=== PATIENT | male | born 1980 | race African-American/Black ===

== ENCOUNTER 2021-12-18 03:16 | Emergency (ER) | payer OTHER, SELFPAY ==
[2021-12-18 04:27] LABS: #Eosinphils 0.3 10x3/uL (0.0-0.5); #Monocytes 0.9 10x3/uL (0.0-1.1); #Neutrophils 6.9 10x3/uL (1.5-8.4); %Basophils 0.2 % (0.0-2.0); %Eosinophils 2.5 % (0.0-6.0); %Lymphocytes 21.7 % (18.0-47.0); %Neutrophils 66.3 % (40.0-75.0); Hemoglobin 11.1 g/dL (13.5-17.5); Mean Corpuscular HGB CONC 31.5 g/dL (32.0-36.0); Mean Corpuscular Hemoglobin 25.4 pg (27.0-33.0); Mean Corpuscular Volume 80.5 fl (81.2-95.1); Mean Platelet Volume 8.7 fl (7.4-10.4); Platelet Count 390 10x3/uL (150-450); RBC Distribution Width 16.6 % (11.5-14.5); Red Blood Cell (RBC) Count 4.37 10x6/uL (4.32-5.72); White Blood Cell (WBC) Count 10.4 10x3/uL (3.5-10.5)
[2021-12-18 04:39] LABS: ALT (SGPT) 18 U/L (8-55); AST (SGOT) 21 U/L (5-34); Albumin 3.6 g/dL (3.5-5.0); Alkaline Phosphatase 98 U/L (40-110); Anion Gap 21 mmol/L (10-20); BUN (Urea Nitrogen) 14 mg/dL (8.9-20.6); Bilirubin, Total 0.4 mg/dL (0.2-1.2); Calc. Creatinine Clearance 0 mL/min (70-130); Calcium 8.7 mg/dL (7.8-10.44); Carbon Dioxide 20 mmol/L (22-29); Chloride 102 mmol/L (98-107); Glucose 104 mg/dL (70-105); Potassium 4.3 mmol/L (3.5-5.1); Protein, Total 7.6 g/dL (6.0-8.3); Sodium 139 mmol/L (136-145)
== END 2021-12-18 05:41 | disposition home or self-care (01) ==
LOC: CSHERS 03:16
DX: L89.329 Pressure ulcer of left buttock, unspecified stage (principal); G82.20 Paraplegia, unspecified
CPT/HCPCS: 36415; 80053; 83605; 85025; 87040; 87077; 87149; 99283

== ENCOUNTER 2022-02-20 02:06 | Inpatient (IN) | payer MEDICAID, SELFPAY ==
[2022-02-20] MEDS ORDERED: Acetaminophen 325 MG TAB ONE (02:38)
[2022-02-20] MEDS ORDERED: Cefepime 2 GM VIAL ONE (02:38)
[2022-02-20] MEDS ORDERED: Clindamycin/D5W 900 MG in Premix Bag 1 BAG IVPB SCH (02:45)
[2022-02-20 03:13] LABS: Hemoglobin 6.6 g/dL (13.5-17.5); Mean Corpuscular HGB CONC 30.3 g/dL (32.0-36.0); Mean Corpuscular Volume 79.3 fl (81.2-95.1); Mean Platelet Volume 9.3 fl (7.4-10.4); Platelet Count 673 10x3/uL (150-450); RBC Distribution Width 21.5 % (11.5-14.5); Red Blood Cell (RBC) Count 2.75 10x6/uL (4.32-5.72); White Blood Cell (WBC) Count 18.1 10x3/uL (3.5-10.5)
[2022-02-20 03:28] LABS: ALT (SGPT) 19 U/L (8-55); AST (SGOT) 32 U/L (5-34); Albumin 2.5 g/dL (3.5-5.0); Alkaline Phosphatase 94 U/L (40-110); Anion Gap 19 mmol/L (10-20); BUN (Urea Nitrogen) 40 mg/dL (8.9-20.6); Bilirubin, Total 1.4 mg/dL (0.2-1.2); Calc. Creatinine Clearance 0 mL/min (70-130); Calcium 8.7 mg/dL (7.8-10.44); Carbon Dioxide 21 mmol/L (22-29); Chloride 97 mmol/L (98-107); Estimated GFR 80; Globulin 6.3 g/dL (2.4-3.5); Glucose 168 mg/dL (70-105); Potassium 4.8 mmol/L (3.5-5.1); Protein, Total 8.8 g/dL (6.0-8.3); Sodium 132 mmol/L (136-145)
[2022-02-20 03:33] LABS: INR-International Normal Ratio 1.2; PTT 27.9 sec (22.0-33.0); Prothrombin Time 13.4 sec (9.5-12.1)
[2022-02-20 03:37] LABS: MDiff Complete? YES
[2022-02-20 03:43] LABS: Band 22 % (5-11); Lymphocytes 14 % (21-51); Monocytes 4 % (0-10); Neutrophil 60 % (42-75); Target Cells SLIGHT = 2-5 cells (100X) (0-1/hpf)
[2022-02-20 03:44] LABS: Platelet Morphology Comment Appears Increased; Polychromasia SLIGHT = 2-3 cells (100X) (0-2/hpf)
[2022-02-20 05:11] LABS: SARS-CoV-2 NAA Rapid Test Not Detected (NotDetected)
[2022-02-20] MEDS ORDERED: HYDROcodone/Acetaminophen 5/325 mg Tablet PO PRN (05:25)
[2022-02-20] MEDS ORDERED: Senokot S 8.6-50 MG TAB PO PRN (05:25)
[2022-02-20] MEDS ORDERED: Ondansetron PF 4 MG/2 ML Vial IVP PRN (05:25)
[2022-02-20] MEDS ORDERED: Calcium Carbonate 500 MG ChewTAB PO PRN (05:25)
[2022-02-20] MEDS ORDERED: Guaifenesin DM 100-10/5 ML UDCUP PO PRN (05:25)
[2022-02-20 06:13] LABS: Lactic Acid 1.2 mmol/L (0.5-2.2)
[2022-02-20 07:10] LABS: Hemoglobin 7.4 g/dL (13.5-17.5); Mean Corpuscular HGB CONC 31.4 g/dL (32.0-36.0); Mean Corpuscular Hemoglobin 24.7 pg (27.0-33.0); Mean Corpuscular Volume 78.7 fl (81.2-95.1); Mean Platelet Volume 9.1 fl (7.4-10.4); Platelet Count 464 10x3/uL (150-450); RBC Distribution Width 20.3 % (11.5-14.5); White Blood Cell (WBC) Count 13.2 10x3/uL (3.5-10.5)
[2022-02-20 07:17] LABS: Lactic Acid 1.4 mmol/L (0.5-2.2)
[2022-02-20 07:23] LABS: MDiff Complete? YES
[2022-02-20 07:28] LABS: Band 21 % (5-11); Eosinophils 1 % (0-10); Lymphocytes 14 % (21-51); Monocytes 6 % (0-10); Myelocyte 1 % (0-0); Neutrophil 57 % (42-75)
[2022-02-20 07:29] LABS: Polychromasia SLIGHT = 2-3 cells (100X) (0-2/hpf); Target Cells SLIGHT = 2-5 cells (100X) (0-1/hpf)
[2022-02-20 07:30] LABS: Platelet Morphology Comment Appears Increased; Vacuoles SLIGHT
[2022-02-20] MEDS: Lactated Ringer's 1,000 ML IV SCH ×3 (07:30→22:17)
[2022-02-20] MEDS: Famotidine/PF 20 mg/2ml Vial SLOW IVP SCH ×2 (09:46→22:18)
[2022-02-20] MEDS: Piperacillin/Tazobactam 3.375 GM in Sodium Chloride 0.9% 100 ML IVPB SCH ×4 (09:46→22:18)
[2022-02-20] MEDS: Folic Acid 1 MG TAB PO SCH (09:50)
[2022-02-20] MEDS: Multivitamin W/ Minerals 1 TAB PO SCH (09:51)
[2022-02-20] MEDS: Nicotine 21 MG PATCH TD SCH (09:52)
[2022-02-20 11:08] LABS: Bilirubin Neg (Negative); Blood, Urine 250 (Negative); Clarity Clear (Clear); Glucose, Urine (Dipstick) Normal (Negative); Ketone, Urine Negative (Negative); Leukocyte 25 (Negative); Nitrite Negative (Negative); Protein, Urine (Dipstick) 30 mg/dl (Neg-Trace); Specific Gravity, Urine 1.015 (1.002-1.036)
[2022-02-20 11:27] LABS: RBC/HPF 21-50 HPF (0-3)
[2022-02-20 11:28] LABS: Bacteria/HPF Rare-Few HPF (None Seen); Epithelial Cast 0-3 LPF (None Seen); Red Blood Cell Cast 0-3 LPF (None Seen); Squamous Epithelial 0-3 HPF (0-3)
[2022-02-20] MEDS ORDERED: Meropenem 500 MG in Sodium Chloride 0.9% 100 ML IVPB SCH (12:00)
[2022-02-20 13:35] LABS: Hemoglobin 8.4 g/dL (13.5-17.5); Mean Corpuscular HGB CONC 32.7 g/dL (32.0-36.0); Mean Corpuscular Hemoglobin 26.1 pg (27.0-33.0); Mean Corpuscular Volume 79.8 fl (81.2-95.1); Mean Platelet Volume 9.7 fl (7.4-10.4); Platelet Count 555 10x3/uL (150-450); RBC Distribution Width 20.6 % (11.5-14.5); Red Blood Cell (RBC) Count 3.22 10x6/uL (4.32-5.72); White Blood Cell (WBC) Count 13.5 10x3/uL (3.5-10.5)
[2022-02-20] MEDS: Vancomycin HCl 1 GM in Sodium Chloride 0.9% 250 ML 250 ML IVPB SCH (14:06)
[2022-02-20] MEDS ORDERED: Iopamidol 300 61% 100 ML VIAL FS ONE (15:09)
[2022-02-20] MEDS ORDERED: Vancomycin 1 GM in Premix Bag 1 BAG IVPB SCH (18:00)
[2022-02-21] MEDS: Vancomycin HCl 1 GM in Sodium Chloride 0.9% 250 ML 250 ML IVPB SCH ×2 (02:50→15:29)
[2022-02-21 03:57] LABS: Hemoglobin 7.8 g/dL (13.5-17.5); Mean Corpuscular HGB CONC 32.1 g/dL (32.0-36.0); Mean Corpuscular Hemoglobin 25.6 pg (27.0-33.0); Mean Corpuscular Volume 79.7 fl (81.2-95.1); Mean Platelet Volume 9.2 fl (7.4-10.4); Platelet Count 394 10x3/uL (150-450); RBC Distribution Width 20.2 % (11.5-14.5); Red Blood Cell (RBC) Count 3.05 10x6/uL (4.32-5.72); White Blood Cell (WBC) Count 14.1 10x3/uL (3.5-10.5)
[2022-02-21 04:05] LABS: Anion Gap 12 mmol/L (10-20); BUN (Urea Nitrogen) 20 mg/dL (8.9-20.6); Calc. Creatinine Clearance 139 mL/min (70-130); Calcium 7.7 mg/dL (7.8-10.44); Carbon Dioxide 20 mmol/L (22-29); Chloride 106 mmol/L (98-107); Estimated GFR 118; Glucose 116 mg/dL (70-105); Potassium 4.1 mmol/L (3.5-5.1); Sodium 134 mmol/L (136-145)
[2022-02-21 04:18] LABS: MDiff Complete? YES
[2022-02-21 04:25] LABS: Band 18 % (5-11); Lymphocytes 20 % (21-51); Monocytes 5 % (0-10); Neutrophil 56 % (42-75); Nucleated RBC 1 % (0); Platelet Morphology Comment Appears Adequate; Polychromasia SLIGHT = 2-3 cells (100X) (0-2/hpf); Reactive Lymphocytes 1 % (0-10); Vacuoles SLIGHT
[2022-02-21] MEDS: Piperacillin/Tazobactam 3.375 GM in Sodium Chloride 0.9% 100 ML IVPB SCH ×3 (05:04→21:08)
[2022-02-21] MEDS: Lactated Ringer's 1,000 ML IV SCH ×2 (05:06→14:43)
[2022-02-21] MEDS: Folic Acid 1 MG TAB PO SCH (08:06)
[2022-02-21] MEDS: Nicotine 21 MG PATCH TD SCH (08:06)
[2022-02-21] MEDS: Multivitamin W/ Minerals 1 TAB PO SCH (08:06)
[2022-02-21] MEDS: Famotidine/PF 20 mg/2ml Vial SLOW IVP SCH ×2 (08:06→21:08)
[2022-02-21] MEDS ORDERED: SUGAMMADEX SODIUM 200 MG/2 ML VIAL ONE (09:26)
[2022-02-21] MEDS ORDERED: PROPOFOL 20 ML ONE (09:31)
[2022-02-21] MEDS ORDERED: Lidocaine 2% PF 5 ML VIAL ONE (09:32)
[2022-02-21] MEDS ORDERED: PHENYLEPHRINE-NS 100 MCG/ML 10 ML SYRINGE ONE (09:32)
[2022-02-21] MEDS ORDERED: Fentanyl 100 MCG/2 ML VIAL ONE (09:32)
[2022-02-21] MEDS ORDERED: Succinylcholine 200 MG/10 ml SYRINGE FS ONE (09:32)
[2022-02-21] MEDS ORDERED: Ondansetron PF 4 MG/2 ML Vial ONE (09:33)
[2022-02-21] MEDS ORDERED: Metoclopramide HCl 10 MG/2 ML VIAL ONE (09:33)
[2022-02-21] MEDS ORDERED: Rocuronium Bromide 10 MG/ML (10ML VIAL) ONE (09:33)
[2022-02-21 12:56] LABS: Hemoglobin A1c 5.4 % (4.0-6.0)
[2022-02-21 14:48] LABS: Vancomycin, Trough 17.7 ug/mL
[2022-02-22] MEDS: Vancomycin HCl 750 MG in Sodium Chloride 0.9% 250 ML 250 ML IVPB SCH ×2 (03:00→15:21)
[2022-02-22 04:10] LABS: Hemoglobin 6.5 g/dL (13.5-17.5); Mean Corpuscular HGB CONC 31.6 g/dL (32.0-36.0); Mean Corpuscular Hemoglobin 25.5 pg (27.0-33.0); Mean Corpuscular Volume 80.8 fl (81.2-95.1); Mean Platelet Volume 9.3 fl (7.4-10.4); Platelet Count 359 10x3/uL (150-450); RBC Distribution Width 20.3 % (11.5-14.5); Red Blood Cell (RBC) Count 2.55 10x6/uL (4.32-5.72); White Blood Cell (WBC) Count 19.9 10x3/uL (3.5-10.5)
[2022-02-22] MEDS: Lactated Ringer's 1,000 ML IV SCH ×3 (04:16→16:26)
[2022-02-22] MEDS: Piperacillin/Tazobactam 3.375 GM in Sodium Chloride 0.9% 100 ML IVPB SCH (04:16)
[2022-02-22 04:17] LABS: MDiff Complete? YES
[2022-02-22 04:26] LABS: ALT (SGPT) 12 U/L (8-55); AST (SGOT) 28 U/L (5-34); Albumin 1.7 g/dL (3.5-5.0); Alkaline Phosphatase 81 U/L (40-110); Anion Gap 13 mmol/L (10-20); BUN (Urea Nitrogen) 14 mg/dL (8.9-20.6); Bilirubin, Total 0.6 mg/dL (0.2-1.2); Calc. Creatinine Clearance 135 mL/min (70-130); Calcium 7.1 mg/dL (7.8-10.44); Carbon Dioxide 19 mmol/L (22-29); Chloride 105 mmol/L (98-107); Estimated GFR 117; Globulin 4.1 g/dL (2.4-3.5); Glucose 130 mg/dL (70-105); Potassium 3.6 mmol/L (3.5-5.1); Protein, Total 5.8 g/dL (6.0-8.3); Sodium 133 mmol/L (136-145)
[2022-02-22 04:42] LABS: Band 31 % (5-11); Eosinophils 1 % (0-10); Lymphocytes 14 % (21-51); Metamyelocyte 2 % (0-0); Monocytes 5 % (0-10); Neutrophil 47 % (42-75)
[2022-02-22 04:45] LABS: Anisocytosis SLIGHT = 6-15 cells (100X) (0-5/hpf); Hypochromia MODERATE=16-30 cells (100X) (0-5/hpf); Polychromasia SLIGHT = 2-3 cells (100X) (0-2/hpf)
[2022-02-22 04:47] LABS: Platelet Morphology Comment Appears Adequate
[2022-02-22 05:13] VITALS: BMI 20.7
[2022-02-22] MEDS: Nicotine 21 MG PATCH TD SCH (09:12)
[2022-02-22] MEDS: Famotidine/PF 20 mg/2ml Vial SLOW IVP SCH ×2 (09:12→20:07)
[2022-02-22] MEDS: Multivitamin W/ Minerals 1 TAB PO SCH (09:12)
[2022-02-22] MEDS: Folic Acid 1 MG TAB PO SCH (09:12)
[2022-02-22] MEDS: Enoxaparin Sodium 40 MG/0.4 ML SYRINGE SC SCH (09:15)
[2022-02-22] MEDS ORDERED: Meropenem 1 GM in Sodium Chloride 0.9% 100 ML IVPB SCH (09:30)
[2022-02-22] MEDS ORDERED: Chloraseptic Spray 180 ml Bottle PO PRN (17:37)
[2022-02-22] MEDS: Meropenem 1 GM in Sodium Chloride 0.9% 100 ML IVPB SCH (17:58)
[2022-02-22 18:14] LABS: Hemoglobin 7.3 g/dL (13.5-17.5)
[2022-02-22] MEDS: Cepastat Lozenges 1 LOZ PO PRN (19:46)
[2022-02-23] MEDS: Meropenem 1 GM in Sodium Chloride 0.9% 100 ML IVPB SCH ×3 (00:51→18:15)
[2022-02-23] MEDS: Lactated Ringer's 1,000 ML IV SCH ×4 (01:00→23:30)
[2022-02-23] MEDS: Vancomycin HCl 750 MG in Sodium Chloride 0.9% 250 ML 250 ML IVPB SCH ×2 (02:46→04:00)
[2022-02-23 05:24] LABS: Anion Gap 10 mmol/L (10-20); BUN (Urea Nitrogen) 10 mg/dL (8.9-20.6); Calc. Creatinine Clearance 152 mL/min (70-130); Calcium 7.1 mg/dL (7.8-10.44); Carbon Dioxide 25 mmol/L (22-29); Chloride 105 mmol/L (98-107); Estimated GFR 121; Glucose 126 mg/dL (70-105); Potassium 3.3 mmol/L (3.5-5.1); Sodium 137 mmol/L (136-145)
[2022-02-23 05:26] LABS: Hemoglobin 7.4 g/dL (13.5-17.5); Mean Corpuscular HGB CONC 31.8 g/dL (32.0-36.0); Mean Corpuscular Hemoglobin 26.4 pg (27.0-33.0); Mean Corpuscular Volume 83.2 fl (81.2-95.1); Mean Platelet Volume 9.3 fl (7.4-10.4); Platelet Count 357 10x3/uL (150-450); RBC Distribution Width 19.9 % (11.5-14.5); White Blood Cell (WBC) Count 15.9 10x3/uL (3.5-10.5)
[2022-02-23] MEDS: Famotidine/PF 20 mg/2ml Vial SLOW IVP SCH ×2 (09:14→23:30)
[2022-02-23] MEDS: Folic Acid 1 MG TAB PO SCH (09:14)
[2022-02-23] MEDS: Nicotine 21 MG PATCH TD SCH ×2 (09:14→09:29)
[2022-02-23] MEDS: Multivitamin W/ Minerals 1 TAB PO SCH (09:14)
[2022-02-23] MEDS: Enoxaparin Sodium 40 MG/0.4 ML SYRINGE SC SCH (09:14)
[2022-02-23] MEDS: Vancomycin HCl 1 GM in Sodium Chloride 0.9% 250 ML 250 ML IVPB SCH (16:00)
[2022-02-24] MEDS: Meropenem 1 GM in Sodium Chloride 0.9% 100 ML IVPB SCH ×3 (00:59→18:02)
[2022-02-24] MEDS: Cepastat Lozenges 1 LOZ PO PRN (00:59)
[2022-02-24] MEDS: Vancomycin HCl 1 GM in Sodium Chloride 0.9% 250 ML 250 ML IVPB SCH ×2 (05:00→15:23)
[2022-02-24] MEDS: Lactated Ringer's 1,000 ML IV SCH ×2 (09:09→15:23)
[2022-02-24] MEDS: Enoxaparin Sodium 40 MG/0.4 ML SYRINGE SC SCH (09:48)
[2022-02-24] MEDS: Famotidine/PF 20 mg/2ml Vial SLOW IVP SCH ×2 (09:48→20:32)
[2022-02-24] MEDS: Folic Acid 1 MG TAB PO SCH (09:49)
[2022-02-24] MEDS: Multivitamin W/ Minerals 1 TAB PO SCH (09:49)
[2022-02-24] MEDS: Nicotine 21 MG PATCH TD SCH (09:49)
[2022-02-24 18:11] LABS: Anion Gap 11 mmol/L (10-20); BUN (Urea Nitrogen) 9 mg/dL (8.9-20.6); Calc. Creatinine Clearance 175 mL/min (70-130); Calcium 7.7 mg/dL (7.8-10.44); Carbon Dioxide 26 mmol/L (22-29); Chloride 104 mmol/L (98-107); Estimated GFR 126; Glucose 98 mg/dL (70-105); Sodium 138 mmol/L (136-145)
[2022-02-24] MEDS ORDERED: Potassium Chloride 20 MEQ TAB PO SCH (18:30)
[2022-02-24] MEDS: Acetaminophen 325 MG TAB PO PRN (22:15)
[2022-02-25] MEDS: Lactated Ringer's 1,000 ML IV SCH ×4 (02:27→22:12)
[2022-02-25] MEDS: Meropenem 1 GM in Sodium Chloride 0.9% 100 ML IVPB SCH ×3 (02:32→17:44)
[2022-02-25 02:39] LABS: Vancomycin, Trough 12.5 ug/mL
[2022-02-25 03:03] LABS: Anion Gap 11 mmol/L (10-20); BUN (Urea Nitrogen) 8 mg/dL (8.9-20.6); Calc. Creatinine Clearance 188 mL/min (70-130); Calcium 7.1 mg/dL (7.8-10.44); Carbon Dioxide 25 mmol/L (22-29); Chloride 105 mmol/L (98-107); Estimated GFR 129; Glucose 117 mg/dL (70-105); Potassium 3.4 mmol/L (3.5-5.1); Sodium 138 mmol/L (136-145)
[2022-02-25] MEDS: Vancomycin HCl 1 GM in Sodium Chloride 0.9% 250 ML 250 ML IVPB SCH (04:04)
[2022-02-25] MEDS: VANCOMYCIN 1.25 GM/250 ML BAG 1.25 GM in Premix Bag 1 BAG IVPB SCH ×2 (04:52→16:13)
[2022-02-25] MEDS ORDERED: Potassium Chloride 20 MEQ TAB PO SCH (08:00)
[2022-02-25] MEDS: Multivitamin W/ Minerals 1 TAB PO SCH (09:08)
[2022-02-25] MEDS: Famotidine/PF 20 mg/2ml Vial SLOW IVP SCH ×2 (09:08→22:00)
[2022-02-25] MEDS: Nicotine 21 MG PATCH TD SCH (09:08)
[2022-02-25] MEDS: Folic Acid 1 MG TAB PO SCH (09:08)
[2022-02-25] MEDS: Enoxaparin Sodium 40 MG/0.4 ML SYRINGE SC SCH (09:09)
[2022-02-25] MEDS: Acetaminophen 325 MG TAB PO PRN (12:34)
[2022-02-26] MEDS: Meropenem 1 GM in Sodium Chloride 0.9% 100 ML IVPB SCH ×3 (01:36→17:10)
[2022-02-26] MEDS: VANCOMYCIN 1.25 GM/250 ML BAG 1.25 GM in Premix Bag 1 BAG IVPB SCH ×3 (04:23→19:42)
[2022-02-26 05:25] LABS: Anion Gap 11 mmol/L (10-20); BUN (Urea Nitrogen) 8 mg/dL (8.9-20.6); Calc. Creatinine Clearance 203 mL/min (70-130); Calcium 7.3 mg/dL (7.8-10.44); Carbon Dioxide 26 mmol/L (22-29); Chloride 104 mmol/L (98-107); Estimated GFR 132; Glucose 102 mg/dL (70-105); Potassium 3.5 mmol/L (3.5-5.1); Sodium 137 mmol/L (136-145)
[2022-02-26 05:31] LABS: Hemoglobin 6.8 g/dL (13.5-17.5); Mean Corpuscular HGB CONC 31.5 g/dL (32.0-36.0); Mean Corpuscular Hemoglobin 26.9 pg (27.0-33.0); Mean Corpuscular Volume 85.4 fl (81.2-95.1); Platelet Count 358 10x3/uL (150-450); RBC Distribution Width 21.4 % (11.5-14.5); Red Blood Cell (RBC) Count 2.53 10x6/uL (4.32-5.72); White Blood Cell (WBC) Count 13.6 10x3/uL (3.5-10.5)
[2022-02-26] MEDS: Acetaminophen 325 MG TAB PO PRN (07:00)
[2022-02-26] MEDS: Enoxaparin Sodium 40 MG/0.4 ML SYRINGE SC SCH (09:21)
[2022-02-26] MEDS: Folic Acid 1 MG TAB PO SCH (09:21)
[2022-02-26] MEDS: Nicotine 21 MG PATCH TD SCH (09:22)
[2022-02-26] MEDS: Famotidine/PF 20 mg/2ml Vial SLOW IVP SCH ×2 (09:22→21:23)
[2022-02-26] MEDS: Multivitamin W/ Minerals 1 TAB PO SCH (09:22)
[2022-02-26] MEDS: Lactated Ringer's 1,000 ML IV SCH ×2 (09:23→13:12)
[2022-02-26 18:08] LABS: Vancomycin, Trough 14.1 ug/mL
[2022-02-26 19:52] LABS: Hemoglobin 8.1 g/dL (13.5-17.5)
[2022-02-27] MEDS: Meropenem 1 GM in Sodium Chloride 0.9% 100 ML IVPB SCH ×3 (01:25→17:28)
[2022-02-27] MEDS: Lactated Ringer's 1,000 ML IV SCH ×2 (01:25→09:24)
[2022-02-27 04:17] LABS: Hemoglobin 7.6 g/dL (13.5-17.5); Mean Corpuscular HGB CONC 31.1 g/dL (32.0-36.0); Mean Corpuscular Hemoglobin 26.7 pg (27.0-33.0); Mean Corpuscular Volume 85.6 fl (81.2-95.1); Mean Platelet Volume 9.3 fl (7.4-10.4); Platelet Count 364 10x3/uL (150-450); Red Blood Cell (RBC) Count 2.85 10x6/uL (4.32-5.72); White Blood Cell (WBC) Count 13.4 10x3/uL (3.5-10.5)
[2022-02-27] MEDS: VANCOMYCIN 1.25 GM/250 ML BAG 1.25 GM in Premix Bag 1 BAG IVPB SCH ×2 (08:51→21:25)
[2022-02-27] MEDS: Enoxaparin Sodium 40 MG/0.4 ML SYRINGE SC SCH (08:51)
[2022-02-27] MEDS: Folic Acid 1 MG TAB PO SCH (08:52)
[2022-02-27] MEDS: Multivitamin W/ Minerals 1 TAB PO SCH (08:52)
[2022-02-27] MEDS: Famotidine/PF 20 mg/2ml Vial SLOW IVP SCH ×2 (08:52→21:25)
[2022-02-27] MEDS: Nicotine 21 MG PATCH TD SCH (08:52)
[2022-02-27] MEDS: Acetaminophen 325 MG TAB PO PRN (10:38)
[2022-02-28] MEDS: Meropenem 1 GM in Sodium Chloride 0.9% 100 ML IVPB SCH ×3 (01:28→17:33)
[2022-02-28 08:06] LABS: Vancomycin, Trough 18.9 ug/mL
[2022-02-28] MEDS: Famotidine/PF 20 mg/2ml Vial SLOW IVP SCH ×2 (09:11→20:26)
[2022-02-28] MEDS: VANCOMYCIN 1.25 GM/250 ML BAG 1.25 GM in Premix Bag 1 BAG IVPB SCH ×2 (09:11→20:26)
[2022-02-28] MEDS: Enoxaparin Sodium 40 MG/0.4 ML SYRINGE SC SCH (09:13)
[2022-02-28] MEDS: Multivitamin W/ Minerals 1 TAB PO SCH (09:14)
[2022-02-28] MEDS: Folic Acid 1 MG TAB PO SCH (09:14)
[2022-02-28] MEDS: Nicotine 21 MG PATCH TD SCH (17:38)
[2022-03-01] MEDS: Meropenem 1 GM in Sodium Chloride 0.9% 100 ML IVPB SCH ×2 (01:30→09:57)
[2022-03-01 06:29] LABS: BUN (Urea Nitrogen) 8 mg/dL (8.9-20.6); Calc. Creatinine Clearance 207 mL/min (70-130); Calcium 7.1 mg/dL (7.8-10.44); Carbon Dioxide 26 mmol/L (22-29); Chloride 108 mmol/L (98-107); Estimated GFR 133; Glucose 106 mg/dL (70-105); Potassium 3.7 mmol/L (3.5-5.1); Sodium 141 mmol/L (136-145)
[2022-03-01 06:34] LABS: Anion Gap 11 mmol/L (10-20)
[2022-03-01 06:50] LABS: Hemoglobin 6.7 g/dL (13.5-17.5); Mean Corpuscular HGB CONC 31.3 g/dL (32.0-36.0); Mean Corpuscular Volume 86.3 fl (81.2-95.1); Mean Platelet Volume 8.8 fl (7.4-10.4); Platelet Count 328 10x3/uL (150-450); RBC Distribution Width 20.8 % (11.5-14.5); Red Blood Cell (RBC) Count 2.48 10x6/uL (4.32-5.72); White Blood Cell (WBC) Count 8.9 10x3/uL (3.5-10.5)
[2022-03-01] MEDS ORDERED: Vancomycin HCl 1.25 GM in Sodium Chloride 0.9% 250 ML 250 ML IVPB SCH (08:00)
[2022-03-01] MEDS ORDERED: Vancomycin HCl 1.25 GM, Admixture Fee 1 EACH in Sodium Chloride 0.9% 250 ML 250 ML IVPB SCH ×2 (09:15→20:00)
[2022-03-01] MEDS: Folic Acid 1 MG TAB PO SCH (09:51)
[2022-03-01] MEDS: Multivitamin W/ Minerals 1 TAB PO SCH (09:51)
[2022-03-01] MEDS: Famotidine/PF 20 mg/2ml Vial SLOW IVP SCH ×2 (09:51→23:11)
[2022-03-01] MEDS: Enoxaparin Sodium 40 MG/0.4 ML SYRINGE SC SCH (09:51)
[2022-03-01 21:37] LABS: Vancomycin, Trough 25.2 ug/mL
[2022-03-02] MEDS: Meropenem 1 GM in Sodium Chloride 0.9% 100 ML IVPB SCH ×3 (03:30→16:51)
[2022-03-02] MEDS: Nicotine 21 MG PATCH TD SCH ×2 (05:56→09:21)
[2022-03-02] MEDS ORDERED: VANCOMYCIN 1.25 GM, Admixture Fee 1 EACH in Sodium Chloride 0.9% 250 ML 250 ML IVPB SCH (08:00)
[2022-03-02] MEDS: Enoxaparin Sodium 40 MG/0.4 ML SYRINGE SC SCH (09:20)
[2022-03-02] MEDS: Famotidine/PF 20 mg/2ml Vial SLOW IVP SCH ×2 (09:20→22:12)
[2022-03-02] MEDS: Folic Acid 1 MG TAB PO SCH (09:20)
[2022-03-02] MEDS: Multivitamin W/ Minerals 1 TAB PO SCH (09:20)
[2022-03-02] MEDS: Vancomycin HCl 1 GM in Sodium Chloride 0.9% 250 ML 250 ML IVPB SCH ×2 (09:21→22:07)
[2022-03-02] MEDS: Cholestyramine/Aspartame 4 gm Packet PO SCH (11:35)
[2022-03-03] MEDS: Meropenem 1 GM in Sodium Chloride 0.9% 100 ML IVPB SCH ×3 (01:51→17:02)
[2022-03-03 05:48] LABS: #Eosinphils 0.1 10x3/uL (0.0-0.5); #Monocytes 0.7 10x3/uL (0.0-1.1); #Neutrophils 6.7 10x3/uL (1.5-8.4); %Basophils 0.2 % (0.0-2.0); %Eosinophils 1.4 % (0.0-6.0); %Lymphocytes 15.7 % (18.0-47.0); %Monocytes 7.8 % (0.0-10.0); %Neutrophils 74.1 % (40.0-75.0); Hemoglobin 7.1 g/dL (13.5-17.5); Mean Corpuscular HGB CONC 31.7 g/dL (32.0-36.0); Mean Corpuscular Hemoglobin 27.5 pg (27.0-33.0); Mean Corpuscular Volume 86.8 fl (81.2-95.1); Mean Platelet Volume 8.9 fl (7.4-10.4); Platelet Count 365 10x3/uL (150-450); RBC Distribution Width 19.9 % (11.5-14.5); Red Blood Cell (RBC) Count 2.58 10x6/uL (4.32-5.72); White Blood Cell (WBC) Count 9.1 10x3/uL (3.5-10.5)
[2022-03-03 06:07] LABS: Anion Gap 13 mmol/L (10-20); BUN (Urea Nitrogen) 7 mg/dL (8.9-20.6); Calc. Creatinine Clearance 216 mL/min (70-130); Calcium 6.9 mg/dL (7.8-10.44); Carbon Dioxide 27 mmol/L (22-29); Chloride 107 mmol/L (98-107); Estimated GFR 135; Glucose 93 mg/dL (70-105); Potassium 3.6 mmol/L (3.5-5.1); Sodium 143 mmol/L (136-145)
[2022-03-03] MEDS ORDERED: Calcium Gluconate 4.6 MEQ in Sodium Chloride 0.9% 100 ML IVPB SCH (08:00)
[2022-03-03] MEDS ORDERED: Meropenem 1 GM VIAL ONE (08:52)
[2022-03-03] MEDS: Vancomycin HCl 1 GM in Sodium Chloride 0.9% 250 ML 250 ML IVPB SCH (08:53)
[2022-03-03] MEDS: Enoxaparin Sodium 40 MG/0.4 ML SYRINGE SC SCH (08:53)
[2022-03-03] MEDS: Multivitamin W/ Minerals 1 TAB PO SCH (08:53)
[2022-03-03] MEDS: Nicotine 21 MG PATCH TD SCH (08:53)
[2022-03-03] MEDS: Calcium Carbonate 500 MG ChewTAB PO SCH ×2 (08:53→21:12)
[2022-03-03] MEDS: Folic Acid 1 MG TAB PO SCH (08:53)
[2022-03-03] MEDS: Famotidine/PF 20 mg/2ml Vial SLOW IVP SCH ×2 (08:53→21:13)
[2022-03-03] MEDS: Cholestyramine/Aspartame 4 gm Packet PO SCH (12:59)
[2022-03-03 20:39] LABS: Vancomycin, Trough 10.6 ug/mL
[2022-03-03] MEDS: VANCOMYCIN 1.25 GM in Sodium Chloride 0.9% 250 ML 250 ML IVPB SCH (21:49)
[2022-03-04] MEDS: Meropenem 1 GM in Sodium Chloride 0.9% 100 ML IVPB SCH ×3 (00:59→17:04)
[2022-03-04 04:57] LABS: ALT (SGPT) 24 U/L (8-55); AST (SGOT) 25 U/L (5-34); Albumin 1.7 g/dL (3.5-5.0); Alkaline Phosphatase 129 U/L (40-110); Anion Gap 9 mmol/L (10-20); BUN (Urea Nitrogen) 12 mg/dL (8.9-20.6); Bilirubin, Total 0.2 mg/dL (0.2-1.2); Calc. Creatinine Clearance 212 mL/min (70-130); Calcium 7.4 mg/dL (7.8-10.44); Carbon Dioxide 28 mmol/L (22-29); Chloride 105 mmol/L (98-107); Estimated GFR 134; Globulin 3.8 g/dL (2.4-3.5); Glucose 120 mg/dL (70-105); Potassium 3.5 mmol/L (3.5-5.1); Protein, Total 5.5 g/dL (6.0-8.3); Sodium 138 mmol/L (136-145)
[2022-03-04] MEDS: Enoxaparin Sodium 40 MG/0.4 ML SYRINGE SC SCH (08:33)
[2022-03-04] MEDS: Famotidine/PF 20 mg/2ml Vial SLOW IVP SCH ×2 (08:33→21:52)
[2022-03-04] MEDS: Multivitamin W/ Minerals 1 TAB PO SCH (08:33)
[2022-03-04] MEDS: Folic Acid 1 MG TAB PO SCH (08:33)
[2022-03-04] MEDS: Calcium Carbonate 500 MG ChewTAB PO SCH ×2 (08:33→21:52)
[2022-03-04] MEDS: VANCOMYCIN 1.25 GM in Sodium Chloride 0.9% 250 ML 250 ML IVPB SCH ×2 (08:33→21:52)
[2022-03-04] MEDS: Nicotine 21 MG PATCH TD SCH (09:08)
[2022-03-04] MEDS: Cholestyramine/Aspartame 4 gm Packet PO SCH (11:41)
[2022-03-05] MEDS: Meropenem 1 GM in Sodium Chloride 0.9% 100 ML IVPB SCH (00:46)
[2022-03-05] MEDS: Enoxaparin Sodium 40 MG/0.4 ML SYRINGE SC SCH (09:13)
[2022-03-05] MEDS: VANCOMYCIN 1.25 GM in Sodium Chloride 0.9% 250 ML 250 ML IVPB SCH (09:13)
[2022-03-05] MEDS: Folic Acid 1 MG TAB PO SCH (09:13)
[2022-03-05] MEDS: Multivitamin W/ Minerals 1 TAB PO SCH (09:13)
[2022-03-05] MEDS: Famotidine/PF 20 mg/2ml Vial SLOW IVP SCH ×2 (09:13→21:44)
[2022-03-05] MEDS: Calcium Carbonate 500 MG ChewTAB PO SCH ×2 (09:14→21:44)
[2022-03-05] MEDS: Nicotine 21 MG PATCH TD SCH (09:14)
[2022-03-05 10:05] LABS: Vancomycin, Trough 26.5 ug/mL
[2022-03-05] MEDS: Cholestyramine/Aspartame 4 gm Packet PO SCH (12:00)
[2022-03-05 23:32] LABS: Vancomycin, Random 7.9 ug/mL (See Comment)
[2022-03-06] MEDS: Vancomycin HCl 750 MG in Sodium Chloride 0.9% 250 ML 250 ML IVPB SCH ×3 (00:13→23:33)
[2022-03-06 04:48] LABS: Hemoglobin 7.3 g/dL (13.5-17.5); Mean Corpuscular HGB CONC 31.1 g/dL (32.0-36.0); Mean Platelet Volume 8.9 fl (7.4-10.4); Platelet Count 341 10x3/uL (150-450); White Blood Cell (WBC) Count 7.6 10x3/uL (3.5-10.5)
[2022-03-06 05:03] LABS: MDiff Complete? YES
[2022-03-06 06:13] LABS: Eosinophils 1 % (0-10); Lymphocytes 9 % (21-51); Monocytes 9 % (0-10); Neutrophil 81 % (42-75)
[2022-03-06 06:17] LABS: Anisocytosis SLIGHT = 6-15 cells (100X) (0-5/hpf); Hypochromia MODERATE=16-30 cells (100X) (0-5/hpf); Target Cells SLIGHT = 2-5 cells (100X) (0-1/hpf)
[2022-03-06 06:18] LABS: Platelet Morphology Comment Appears Adequate
[2022-03-06 07:27] LABS: ALT (SGPT) 20 U/L (8-55); AST (SGOT) 23 U/L (5-34); Albumin 1.8 g/dL (3.5-5.0); Alkaline Phosphatase 140 U/L (40-110); Anion Gap 14 mmol/L (10-20); BUN (Urea Nitrogen) 9 mg/dL (8.9-20.6); Bilirubin, Total 0.3 mg/dL (0.2-1.2); Calc. Creatinine Clearance 216 mL/min (70-130); Calcium 7.5 mg/dL (7.8-10.44); Carbon Dioxide 23 mmol/L (22-29); Chloride 106 mmol/L (98-107); Estimated GFR 135; Globulin 4.5 g/dL (2.4-3.5); Glucose 81 mg/dL (70-105); Potassium 4.4 mmol/L (3.5-5.1); Protein, Total 6.3 g/dL (6.0-8.3); Sodium 139 mmol/L (136-145)
[2022-03-06] MEDS: Famotidine/PF 20 mg/2ml Vial SLOW IVP SCH ×2 (08:32→20:59)
[2022-03-06] MEDS: Acetaminophen 325 MG TAB PO PRN (08:32)
[2022-03-06] MEDS: Enoxaparin Sodium 40 MG/0.4 ML SYRINGE SC SCH (08:32)
[2022-03-06] MEDS: Calcium Carbonate 500 MG ChewTAB PO SCH ×2 (08:33→20:59)
[2022-03-06] MEDS: Multivitamin W/ Minerals 1 TAB PO SCH (08:33)
[2022-03-06] MEDS: Folic Acid 1 MG TAB PO SCH (08:33)
[2022-03-06] MEDS: Nicotine 21 MG PATCH TD SCH (09:14)
[2022-03-06] MEDS: Meropenem 1 GM in Sodium Chloride 0.9% 100 ML IVPB SCH ×2 (10:15→17:33)
[2022-03-06 10:29] LABS: Bilirubin Neg (Negative); Blood, Urine 10 (Negative); Clarity Cloudy (Clear); Glucose, Urine (Dipstick) Normal (Negative); Ketone, Urine Negative (Negative); Leukocyte 25 (Negative); Nitrite Negative (Negative); Protein, Urine (Dipstick) 15 mg/dl (Neg-Trace); Urobilinogen Normal mg/dL (Less than 2)
[2022-03-06 10:47] LABS: Bacteria/HPF 1+ HPF (None Seen); Squamous Epithelial 0-3 HPF (0-3)
[2022-03-06] MEDS: Cholestyramine/Aspartame 4 gm Packet PO SCH (12:59)
[2022-03-07] MEDS: Meropenem 1 GM in Sodium Chloride 0.9% 100 ML IVPB SCH ×3 (01:45→21:29)
[2022-03-07 08:47] LABS: #Eosinphils 0.1 10x3/uL (0.0-0.5); #Monocytes 0.7 10x3/uL (0.0-1.1); #Neutrophils 3.5 10x3/uL (1.5-8.4); %Basophils 0.2 % (0.0-2.0); %Eosinophils 2.5 % (0.0-6.0); %Monocytes 12.6 % (0.0-10.0); %Neutrophils 61.3 % (40.0-75.0); Hemoglobin 7.5 g/dL (13.5-17.5); Mean Corpuscular Hemoglobin 27.3 pg (27.0-33.0); Mean Platelet Volume 8.8 fl (7.4-10.4); Platelet Count 464 10x3/uL (150-450); RBC Distribution Width 19.8 % (11.5-14.5); Red Blood Cell (RBC) Count 2.75 10x6/uL (4.32-5.72); White Blood Cell (WBC) Count 5.6 10x3/uL (3.5-10.5)
[2022-03-07 09:03] LABS: Anion Gap 10 mmol/L (10-20); BUN (Urea Nitrogen) 6 mg/dL (8.9-20.6); Calc. Creatinine Clearance 221 mL/min (70-130); Calcium 7.6 mg/dL (7.8-10.44); Carbon Dioxide 28 mmol/L (22-29); Chloride 105 mmol/L (98-107); Estimated GFR 136; Glucose 75 mg/dL (70-105); Potassium 3.1 mmol/L (3.5-5.1); Sodium 140 mmol/L (136-145)
[2022-03-07] MEDS: Famotidine/PF 20 mg/2ml Vial SLOW IVP SCH ×2 (09:10→21:23)
[2022-03-07] MEDS: Enoxaparin Sodium 40 MG/0.4 ML SYRINGE SC SCH (09:10)
[2022-03-07] MEDS: Folic Acid 1 MG TAB PO SCH (09:10)
[2022-03-07] MEDS: Calcium Carbonate 500 MG ChewTAB PO SCH ×2 (09:10→21:24)
[2022-03-07] MEDS: Multivitamin W/ Minerals 1 TAB PO SCH (09:10)
[2022-03-07] MEDS: Nicotine 21 MG PATCH TD SCH (09:25)
[2022-03-07] MEDS ORDERED: Potassium Chloride 20 MEQ TAB PO SCH (11:15)
[2022-03-07] MEDS: Vancomycin HCl 750 MG in Sodium Chloride 0.9% 250 ML 250 ML IVPB SCH (11:44)
[2022-03-07 11:53] LABS: Vancomycin, Trough 7.8 ug/mL
[2022-03-07] MEDS: Cholestyramine/Aspartame 4 gm Packet PO SCH ×2 (21:26→21:58)
[2022-03-07] MEDS: Saccharomyces boulardii 250 MG CAP PO SCH (21:26)
[2022-03-07] MEDS ORDERED: Vancomycin HCl 1.25 GM in Sodium Chloride 0.9% 250 ML 250 ML IVPB SCH (23:59)
[2022-03-08] MEDS: Meropenem 1 GM in Sodium Chloride 0.9% 100 ML IVPB SCH ×3 (03:19→18:55)
[2022-03-08] MEDS ORDERED: Sodium Chloride 0.9% 100 ML ONE (11:14)
[2022-03-08] MEDS ORDERED: Meropenem 1 GM VIAL ONE (11:21)
[2022-03-08] MEDS: Famotidine/PF 20 mg/2ml Vial SLOW IVP SCH ×2 (11:28→22:32)
[2022-03-08] MEDS: Calcium Carbonate 500 MG ChewTAB PO SCH ×2 (11:28→22:31)
[2022-03-08] MEDS: Enoxaparin Sodium 40 MG/0.4 ML SYRINGE SC SCH (11:28)
[2022-03-08] MEDS: Folic Acid 1 MG TAB PO SCH (11:28)
[2022-03-08] MEDS: Multivitamin W/ Minerals 1 TAB PO SCH (11:28)
[2022-03-08] MEDS: Saccharomyces boulardii 250 MG CAP PO SCH ×2 (11:28→22:31)
[2022-03-08] MEDS: Cholestyramine/Aspartame 4 gm Packet PO SCH ×2 (11:30→22:31)
[2022-03-08] MEDS: Nicotine 21 MG PATCH TD SCH (11:31)
[2022-03-08] MEDS: Vancomycin HCl 750 MG in Sodium Chloride 0.9% 250 ML 250 ML IVPB SCH ×2 (16:31→22:33)
[2022-03-08] MEDS: Acetaminophen 325 MG TAB PO PRN (22:32)
[2022-03-09] MEDS: Meropenem 1 GM in Sodium Chloride 0.9% 100 ML IVPB SCH ×3 (02:24→21:14)
[2022-03-09] MEDS: Cholestyramine/Aspartame 4 gm Packet PO SCH ×3 (04:50→21:45)
[2022-03-09] MEDS: Vancomycin HCl 750 MG in Sodium Chloride 0.9% 250 ML 250 ML IVPB SCH ×3 (06:18→21:15)
[2022-03-09] MEDS: Calcium Carbonate 500 MG ChewTAB PO SCH ×3 (10:29→21:16)
[2022-03-09] MEDS: Saccharomyces boulardii 250 MG CAP PO SCH ×2 (10:30→21:16)
[2022-03-09] MEDS: Multivitamin W/ Minerals 1 TAB PO SCH (10:30)
[2022-03-09] MEDS: Folic Acid 1 MG TAB PO SCH (10:30)
[2022-03-09] MEDS: Famotidine/PF 20 mg/2ml Vial SLOW IVP SCH ×2 (10:31→21:18)
[2022-03-09] MEDS: Enoxaparin Sodium 40 MG/0.4 ML SYRINGE SC SCH (10:31)
[2022-03-09] MEDS: Nicotine 21 MG PATCH TD SCH (10:33)
[2022-03-09 13:32] LABS: Vancomycin, Trough 13.6 ug/mL
[2022-03-09] MEDS ORDERED: Famotidine/PF 20 mg/2ml Vial ONE (20:43)
[2022-03-10] MEDS: Meropenem 1 GM in Sodium Chloride 0.9% 100 ML IVPB SCH ×3 (01:37→18:15)
[2022-03-10] MEDS: Vancomycin HCl 750 MG in Sodium Chloride 0.9% 250 ML 250 ML IVPB SCH (05:18)
[2022-03-10] MEDS: Folic Acid 1 MG TAB PO SCH (09:52)
[2022-03-10] MEDS: Calcium Carbonate 500 MG ChewTAB PO SCH ×2 (09:52→21:47)
[2022-03-10] MEDS: Saccharomyces boulardii 250 MG CAP PO SCH ×2 (09:52→21:29)
[2022-03-10] MEDS: Enoxaparin Sodium 40 MG/0.4 ML SYRINGE SC SCH (09:53)
[2022-03-10] MEDS: Multivitamin W/ Minerals 1 TAB PO SCH (09:53)
[2022-03-10] MEDS: Famotidine/PF 20 mg/2ml Vial SLOW IVP SCH ×2 (09:53→21:30)
[2022-03-10] MEDS: Cholestyramine/Aspartame 4 gm Packet PO SCH ×2 (09:54→21:47)
[2022-03-10] MEDS: Nicotine 21 MG PATCH TD SCH ×2 (09:54→10:05)
[2022-03-10 13:31] LABS: Vancomycin, Trough 13.8 ug/mL
[2022-03-10] MEDS: Vancomycin HCl 1 GM in Sodium Chloride 0.9% 250 ML 250 ML IVPB SCH ×2 (14:42→21:29)
[2022-03-11] MEDS: Meropenem 1 GM in Sodium Chloride 0.9% 100 ML IVPB SCH ×3 (01:07→17:13)
[2022-03-11] MEDS: Vancomycin HCl 1 GM in Sodium Chloride 0.9% 250 ML 250 ML IVPB SCH ×2 (05:45→17:12)
[2022-03-11] MEDS: Folic Acid 1 MG TAB PO SCH (09:07)
[2022-03-11] MEDS: Multivitamin W/ Minerals 1 TAB PO SCH (09:07)
[2022-03-11] MEDS: Enoxaparin Sodium 40 MG/0.4 ML SYRINGE SC SCH (09:07)
[2022-03-11] MEDS: Calcium Carbonate 500 MG ChewTAB PO SCH ×2 (09:07→20:18)
[2022-03-11] MEDS: Famotidine/PF 20 mg/2ml Vial SLOW IVP SCH ×2 (09:07→20:18)
[2022-03-11] MEDS: Saccharomyces boulardii 250 MG CAP PO SCH ×2 (09:07→20:18)
[2022-03-11] MEDS: Nicotine 21 MG PATCH TD SCH (09:08)
[2022-03-11] MEDS: Cholestyramine/Aspartame 4 gm Packet PO SCH ×2 (09:08→20:18)
[2022-03-11] MEDS ORDERED: Activase 2 MG VIAL CATH SCH (15:00)
[2022-03-11 16:29] LABS: Vancomycin, Trough 12.9 ug/mL
[2022-03-12] MEDS: Vancomycin HCl 1 GM in Sodium Chloride 0.9% 250 ML 250 ML IVPB SCH ×3 (01:19→16:35)
[2022-03-12] MEDS: Meropenem 1 GM in Sodium Chloride 0.9% 100 ML IVPB SCH ×3 (02:13→16:35)
[2022-03-12] MEDS: Famotidine/PF 20 mg/2ml Vial SLOW IVP SCH ×2 (08:20→20:57)
[2022-03-12] MEDS: Calcium Carbonate 500 MG ChewTAB PO SCH ×2 (08:20→20:58)
[2022-03-12] MEDS: Enoxaparin Sodium 40 MG/0.4 ML SYRINGE SC SCH (08:20)
[2022-03-12] MEDS: Saccharomyces boulardii 250 MG CAP PO SCH ×2 (08:21→20:58)
[2022-03-12] MEDS: Multivitamin W/ Minerals 1 TAB PO SCH (08:21)
[2022-03-12] MEDS: Nicotine 21 MG PATCH TD SCH (08:21)
[2022-03-12] MEDS: Folic Acid 1 MG TAB PO SCH (08:21)
[2022-03-12] MEDS: Cholestyramine/Aspartame 4 gm Packet PO SCH ×2 (08:22→20:57)
[2022-03-12 16:15] LABS: Vancomycin, Trough 16.4 ug/mL
[2022-03-13] MEDS: Vancomycin HCl 1 GM in Sodium Chloride 0.9% 250 ML 250 ML IVPB SCH ×3 (00:57→17:24)
[2022-03-13] MEDS: Meropenem 1 GM in Sodium Chloride 0.9% 100 ML IVPB SCH ×3 (02:44→17:32)
[2022-03-13] MEDS: Calcium Carbonate 500 MG ChewTAB PO SCH ×2 (08:23→21:17)
[2022-03-13] MEDS: Cholestyramine/Aspartame 4 gm Packet PO SCH ×2 (08:23→21:17)
[2022-03-13] MEDS: Nicotine 21 MG PATCH TD SCH (08:23)
[2022-03-13] MEDS: Famotidine/PF 20 mg/2ml Vial SLOW IVP SCH ×2 (08:30→21:14)
[2022-03-13] MEDS: Saccharomyces boulardii 250 MG CAP PO SCH ×2 (08:31→21:14)
[2022-03-13] MEDS: Enoxaparin Sodium 40 MG/0.4 ML SYRINGE SC SCH (08:31)
[2022-03-13] MEDS: Folic Acid 1 MG TAB PO SCH (08:31)
[2022-03-13] MEDS: Multivitamin W/ Minerals 1 TAB PO SCH (08:31)
[2022-03-13 17:08] LABS: Vancomycin, Trough 14.6 ug/mL
[2022-03-13] MEDS: Acetaminophen 325 MG TAB PO PRN (21:14)
[2022-03-14] MEDS: Vancomycin HCl 1 GM in Sodium Chloride 0.9% 250 ML 250 ML IVPB SCH ×3 (00:48→16:34)
[2022-03-14] MEDS: Meropenem 1 GM in Sodium Chloride 0.9% 100 ML IVPB SCH ×3 (02:03→16:34)
[2022-03-14] MEDS: Enoxaparin Sodium 40 MG/0.4 ML SYRINGE SC SCH (09:20)
[2022-03-14] MEDS: Saccharomyces boulardii 250 MG CAP PO SCH ×2 (09:20→22:14)
[2022-03-14] MEDS: Multivitamin W/ Minerals 1 TAB PO SCH (09:20)
[2022-03-14] MEDS: Folic Acid 1 MG TAB PO SCH (09:20)
[2022-03-14] MEDS: Cholestyramine/Aspartame 4 gm Packet PO SCH ×2 (09:20→22:15)
[2022-03-14] MEDS: Famotidine/PF 20 mg/2ml Vial SLOW IVP SCH ×2 (09:20→22:14)
[2022-03-14] MEDS: Calcium Carbonate 500 MG ChewTAB PO SCH ×2 (09:21→22:15)
[2022-03-14] MEDS: Nicotine 21 MG PATCH TD SCH (09:21)
[2022-03-14] MEDS ORDERED: Meropenem 1 GM VIAL ONE (09:22)
[2022-03-14] MEDS ORDERED: Moisturizing Cream (Eucerin) 113 GM JAR TOP PRN (12:42)
[2022-03-14] MEDS: Acetaminophen 325 MG TAB PO PRN (22:14)
[2022-03-15] MEDS: Meropenem 1 GM in Sodium Chloride 0.9% 100 ML IVPB SCH ×3 (01:57→18:38)
[2022-03-15 09:52] LABS: Vancomycin, Trough 17.3 ug/mL
[2022-03-15] MEDS: Vancomycin HCl 1 GM in Sodium Chloride 0.9% 250 ML 250 ML IVPB SCH ×3 (10:12→17:10)
[2022-03-15] MEDS: Nicotine 21 MG PATCH TD SCH (10:12)
[2022-03-15] MEDS: Cholestyramine/Aspartame 4 gm Packet PO SCH ×2 (10:15→22:35)
[2022-03-15] MEDS: Enoxaparin Sodium 40 MG/0.4 ML SYRINGE SC SCH (10:15)
[2022-03-15] MEDS: Calcium Carbonate 500 MG ChewTAB PO SCH ×2 (10:15→22:35)
[2022-03-15] MEDS: Famotidine/PF 20 mg/2ml Vial SLOW IVP SCH ×2 (10:16→21:27)
[2022-03-15] MEDS: Saccharomyces boulardii 250 MG CAP PO SCH ×2 (10:16→21:27)
[2022-03-15] MEDS: Multivitamin W/ Minerals 1 TAB PO SCH (10:17)
[2022-03-15 20:55] LABS: Platelet Count 445 10x3/uL (150-450)
[2022-03-15 21:00] LABS: Anion Gap 13 mmol/L (10-20); BUN (Urea Nitrogen) 6 mg/dL (8.9-20.6); Calc. Creatinine Clearance 192 mL/min (70-130); Calcium 7.6 mg/dL (7.8-10.44); Carbon Dioxide 26 mmol/L (22-29); Chloride 104 mmol/L (98-107); Estimated GFR 130; Glucose 108 mg/dL (70-105); Sodium 139 mmol/L (136-145)
[2022-03-16] MEDS: Vancomycin HCl 1 GM in Sodium Chloride 0.9% 250 ML 250 ML IVPB SCH ×3 (01:16→18:13)
[2022-03-16] MEDS: Meropenem 1 GM in Sodium Chloride 0.9% 100 ML IVPB SCH ×3 (03:08→18:12)
[2022-03-16] MEDS: Cholestyramine/Aspartame 4 gm Packet PO SCH ×4 (10:27→23:34)
[2022-03-16] MEDS: Enoxaparin Sodium 40 MG/0.4 ML SYRINGE SC SCH ×2 (10:29→10:48)
[2022-03-16] MEDS: Multivitamin W/ Minerals 1 TAB PO SCH (10:29)
[2022-03-16] MEDS: Saccharomyces boulardii 250 MG CAP PO SCH ×2 (10:29→20:37)
[2022-03-16] MEDS: Calcium Carbonate 500 MG ChewTAB PO SCH ×2 (10:29→20:36)
[2022-03-16] MEDS: Folic Acid 1 MG TAB PO SCH (10:30)
[2022-03-16] MEDS: Nicotine 21 MG PATCH TD SCH (10:30)
[2022-03-16] MEDS: Famotidine/PF 20 mg/2ml Vial SLOW IVP SCH ×3 (10:30→20:22)
[2022-03-16] MEDS ORDERED: Labetalol HCl 100 MG/20 ML VIAL SLOW IVP PRN (14:19)
[2022-03-16] MEDS ORDERED: Artificial Tear Sol 15 ML BOT EA EYE PRN (14:19)
[2022-03-16] MEDS ORDERED: Benzonatate 100 MG CAP PO PRN (14:19)
[2022-03-16] MEDS ORDERED: Loperamide HCl 2 MG CAP PO PRN ×2 (14:19)
[2022-03-16] MEDS ORDERED: Diphenoxylate HCl/Atropine Tablet PO PRN ×2 (14:19)
[2022-03-16] MEDS ORDERED: Sodium Chloride 0.65% Nasal 44 ML BOT EA NARE PRN (14:19)
[2022-03-16] MEDS ORDERED: hydrALAZINE 20 MG/ML VIAL SLOW IVP PRN (14:19)
[2022-03-17] MEDS: Vancomycin HCl 1 GM in Sodium Chloride 0.9% 250 ML 250 ML IVPB SCH ×3 (01:25→20:17)
[2022-03-17] MEDS: Meropenem 1 GM in Sodium Chloride 0.9% 100 ML IVPB SCH ×2 (03:22→11:59)
[2022-03-17] MEDS: Folic Acid 1 MG TAB PO SCH (08:44)
[2022-03-17] MEDS: Multivitamin W/ Minerals 1 TAB PO SCH (08:44)
[2022-03-17] MEDS: Saccharomyces boulardii 250 MG CAP PO SCH ×2 (08:44→20:35)
[2022-03-17] MEDS: Enoxaparin Sodium 40 MG/0.4 ML SYRINGE SC SCH (08:45)
[2022-03-17] MEDS: Famotidine/PF 20 mg/2ml Vial SLOW IVP SCH (08:45)
[2022-03-17] MEDS: Calcium Carbonate 500 MG ChewTAB PO SCH ×2 (08:56→20:35)
[2022-03-17] MEDS: Nicotine 21 MG PATCH TD SCH (08:57)
[2022-03-17] MEDS: Cholestyramine/Aspartame 4 gm Packet PO SCH ×3 (08:57→22:55)
[2022-03-18] MEDS: Acetaminophen 325 MG TAB PO PRN (00:22)
[2022-03-18] MEDS: Famotidine/PF 20 mg/2ml Vial SLOW IVP SCH ×3 (00:23→20:11)
[2022-03-18] MEDS: Vancomycin HCl 1 GM in Sodium Chloride 0.9% 250 ML 250 ML IVPB SCH ×3 (02:19→17:41)
[2022-03-18] MEDS: Meropenem 1 GM in Sodium Chloride 0.9% 100 ML IVPB SCH ×4 (04:25→17:41)
[2022-03-18 08:05] LABS: Platelet Count 454 10x3/uL (150-450)
[2022-03-18] MEDS: Cholestyramine/Aspartame 4 gm Packet PO SCH ×3 (08:40→20:12)
[2022-03-18] MEDS: Calcium Carbonate 500 MG ChewTAB PO SCH ×2 (08:40→20:12)
[2022-03-18] MEDS: Nicotine 21 MG PATCH TD SCH (08:41)
[2022-03-18 08:59] LABS: Vancomycin, Trough 15.8 ug/mL
[2022-03-18] MEDS: Enoxaparin Sodium 40 MG/0.4 ML SYRINGE SC SCH (10:36)
[2022-03-18] MEDS: Saccharomyces boulardii 250 MG CAP PO SCH ×2 (10:37→20:13)
[2022-03-18] MEDS: Multivitamin W/ Minerals 1 TAB PO SCH (10:37)
[2022-03-18] MEDS: Folic Acid 1 MG TAB PO SCH (10:37)
[2022-03-19] MEDS: Vancomycin HCl 1 GM in Sodium Chloride 0.9% 250 ML 250 ML IVPB SCH ×3 (00:45→17:47)
[2022-03-19] MEDS: Meropenem 1 GM in Sodium Chloride 0.9% 100 ML IVPB SCH ×3 (03:25→17:47)
[2022-03-19 05:28] LABS: #Eosinphils 0.2 10x3/uL (0.0-0.5); #Neutrophils 7.8 10x3/uL (1.5-8.4); %Basophils 0.2 % (0.0-2.0); %Lymphocytes 14.8 % (18.0-47.0); %Neutrophils 73.3 % (40.0-75.0); Hemoglobin 7.1 g/dL (13.5-17.5); Mean Corpuscular HGB CONC 31.3 g/dL (32.0-36.0); Mean Corpuscular Hemoglobin 26.4 pg (27.0-33.0); Mean Corpuscular Volume 84.4 fl (81.2-95.1); Mean Platelet Volume 8.9 fl (7.4-10.4); Platelet Count 443 10x3/uL (150-450); RBC Distribution Width 17.7 % (11.5-14.5); Red Blood Cell (RBC) Count 2.69 10x6/uL (4.32-5.72); White Blood Cell (WBC) Count 10.6 10x3/uL (3.5-10.5)
[2022-03-19] MEDS: Calcium Carbonate 500 MG ChewTAB PO SCH ×2 (07:15→20:58)
[2022-03-19] MEDS: Nicotine 21 MG PATCH TD SCH (07:16)
[2022-03-19] MEDS: Cholestyramine/Aspartame 4 gm Packet PO SCH ×3 (07:16→20:58)
[2022-03-19] MEDS: Saccharomyces boulardii 250 MG CAP PO SCH ×2 (08:18→20:58)
[2022-03-19] MEDS: Multivitamin W/ Minerals 1 TAB PO SCH (08:18)
[2022-03-19] MEDS: Enoxaparin Sodium 40 MG/0.4 ML SYRINGE SC SCH (08:18)
[2022-03-19] MEDS: Famotidine/PF 20 mg/2ml Vial SLOW IVP SCH ×2 (08:18→20:58)
[2022-03-19] MEDS: Folic Acid 1 MG TAB PO SCH (08:20)
[2022-03-20] MEDS: Meropenem 1 GM in Sodium Chloride 0.9% 100 ML IVPB SCH ×3 (01:37→18:16)
[2022-03-20] MEDS: Vancomycin HCl 1 GM in Sodium Chloride 0.9% 250 ML 250 ML IVPB SCH ×3 (01:37→17:10)
[2022-03-20] MEDS: Enoxaparin Sodium 40 MG/0.4 ML SYRINGE SC SCH (09:18)
[2022-03-20] MEDS: Famotidine/PF 20 mg/2ml Vial SLOW IVP SCH ×2 (09:18→20:53)
[2022-03-20] MEDS: Nicotine 21 MG PATCH TD SCH (09:19)
[2022-03-20] MEDS: Calcium Carbonate 500 MG ChewTAB PO SCH ×2 (09:19→22:20)
[2022-03-20] MEDS: Cholestyramine/Aspartame 4 gm Packet PO SCH ×3 (09:19→22:21)
[2022-03-20] MEDS: Multivitamin W/ Minerals 1 TAB PO SCH (09:19)
[2022-03-20] MEDS: Folic Acid 1 MG TAB PO SCH (09:19)
[2022-03-20] MEDS: Saccharomyces boulardii 250 MG CAP PO SCH ×2 (09:19→20:53)
[2022-03-20] MEDS: Bumetanide 1 MG/4 ML VIAL IVP SCH (15:26)
[2022-03-21] MEDS: Vancomycin HCl 1 GM in Sodium Chloride 0.9% 250 ML 250 ML IVPB SCH ×3 (00:43→17:21)
[2022-03-21] MEDS: Meropenem 1 GM in Sodium Chloride 0.9% 100 ML IVPB SCH ×3 (02:16→18:36)
[2022-03-21] MEDS: Bumetanide 1 MG/4 ML VIAL IVP SCH ×2 (06:04→15:14)
[2022-03-21] MEDS: Folic Acid 1 MG TAB PO SCH (08:35)
[2022-03-21] MEDS: Saccharomyces boulardii 250 MG CAP PO SCH ×2 (08:35→22:00)
[2022-03-21] MEDS: Famotidine/PF 20 mg/2ml Vial SLOW IVP SCH ×2 (08:35→21:15)
[2022-03-21] MEDS: Multivitamin W/ Minerals 1 TAB PO SCH (08:35)
[2022-03-21] MEDS: Calcium Carbonate 500 MG ChewTAB PO SCH ×2 (08:36→22:00)
[2022-03-21] MEDS: Nicotine 21 MG PATCH TD SCH (08:36)
[2022-03-21] MEDS: Cholestyramine/Aspartame 4 gm Packet PO SCH ×3 (08:36→22:00)
[2022-03-21] MEDS: Enoxaparin Sodium 40 MG/0.4 ML SYRINGE SC SCH (08:36)
[2022-03-21] MEDS ORDERED: Activase 2 MG VIAL CATH SCH ×2 (09:00→10:00)
[2022-03-21 11:53] LABS: Vancomycin, Trough 13.3 ug/mL
[2022-03-21 11:54] LABS: Anion Gap 16 mmol/L (10-20); BUN (Urea Nitrogen) 6 mg/dL (8.9-20.6); Calc. Creatinine Clearance 203 mL/min (70-130); Calcium 7.9 mg/dL (7.8-10.44); Carbon Dioxide 30 mmol/L (22-29); Chloride 100 mmol/L (98-107); Estimated GFR 132; Glucose 121 mg/dL (70-105); Potassium 3.5 mmol/L (3.5-5.1); Sodium 142 mmol/L (136-145)
[2022-03-21 11:56] LABS: #Eosinphils 0.2 10x3/uL (0.0-0.5); #Neutrophils 7.9 10x3/uL (1.5-8.4); %Basophils 0.2 % (0.0-2.0); %Eosinophils 1.9 % (0.0-6.0); %Lymphocytes 13.4 % (18.0-47.0); %Neutrophils 74.9 % (40.0-75.0); Mean Corpuscular HGB CONC 31.4 g/dL (32.0-36.0); Mean Corpuscular Hemoglobin 26.8 pg (27.0-33.0); Mean Corpuscular Volume 85.6 fl (81.2-95.1); Platelet Count 483 10x3/uL (150-450); RBC Distribution Width 18.1 % (11.5-14.5); Red Blood Cell (RBC) Count 2.98 10x6/uL (4.32-5.72); White Blood Cell (WBC) Count 10.5 10x3/uL (3.5-10.5)
[2022-03-22] MEDS: Vancomycin HCl 1 GM in Sodium Chloride 0.9% 250 ML 250 ML IVPB SCH ×3 (01:15→17:43)
[2022-03-22] MEDS: Meropenem 1 GM in Sodium Chloride 0.9% 100 ML IVPB SCH ×3 (03:05→21:20)
[2022-03-22] MEDS: Bumetanide 1 MG/4 ML VIAL IVP SCH ×3 (05:25→14:30)
[2022-03-22 06:53] LABS: #Eosinphils 0.2 10x3/uL (0.0-0.5); #Monocytes 1.1 10x3/uL (0.0-1.1); %Basophils 0.2 % (0.0-2.0); %Eosinophils 1.3 % (0.0-6.0); %Lymphocytes 14.2 % (18.0-47.0); %Monocytes 9.4 % (0.0-10.0); %Neutrophils 74.3 % (40.0-75.0); Hemoglobin 7.7 g/dL (13.5-17.5); Mean Corpuscular Hemoglobin 26.3 pg (27.0-33.0); Mean Corpuscular Volume 84.6 fl (81.2-95.1); Platelet Count 460 10x3/uL (150-450); RBC Distribution Width 17.8 % (11.5-14.5); Red Blood Cell (RBC) Count 2.93 10x6/uL (4.32-5.72)
[2022-03-22 07:03] LABS: Anion Gap 13 mmol/L (10-20); BUN (Urea Nitrogen) 7 mg/dL (8.9-20.6); Calc. Creatinine Clearance 203 mL/min (70-130); Calcium 7.9 mg/dL (7.8-10.44); Carbon Dioxide 30 mmol/L (22-29); Chloride 101 mmol/L (98-107); Estimated GFR 132; Glucose 87 mg/dL (70-105); Potassium 3.2 mmol/L (3.5-5.1); Sodium 141 mmol/L (136-145)
[2022-03-22] MEDS ORDERED: Potassium Chloride 20 MEQ TAB PO SCH (09:00)
[2022-03-22] MEDS: Famotidine/PF 20 mg/2ml Vial SLOW IVP SCH ×2 (10:10→21:21)
[2022-03-22] MEDS: Multivitamin W/ Minerals 1 TAB PO SCH (10:10)
[2022-03-22] MEDS: Enoxaparin Sodium 40 MG/0.4 ML SYRINGE SC SCH (10:10)
[2022-03-22] MEDS: Folic Acid 1 MG TAB PO SCH (10:10)
[2022-03-22] MEDS: Calcium Carbonate 500 MG ChewTAB PO SCH ×2 (10:11→21:21)
[2022-03-22] MEDS: Saccharomyces boulardii 250 MG CAP PO SCH ×2 (10:11→21:21)
[2022-03-22] MEDS: Nicotine 21 MG PATCH TD SCH (10:11)
[2022-03-22] MEDS: Cholestyramine/Aspartame 4 gm Packet PO SCH ×3 (10:13→21:21)
[2022-03-22] MEDS: Acetaminophen 325 MG TAB PO PRN (21:21)
[2022-03-23] MEDS: Vancomycin HCl 1 GM in Sodium Chloride 0.9% 250 ML 250 ML IVPB SCH ×3 (01:43→17:27)
[2022-03-23] MEDS: Meropenem 1 GM in Sodium Chloride 0.9% 100 ML IVPB SCH ×3 (02:00→17:27)
[2022-03-23 06:44] LABS: #Eosinphils 0.3 10x3/uL (0.0-0.5); #Neutrophils 5.6 10x3/uL (1.5-8.4); %Basophils 0.2 % (0.0-2.0); %Eosinophils 3.1 % (0.0-6.0); %Lymphocytes 19.4 % (18.0-47.0); %Monocytes 11.8 % (0.0-10.0); %Neutrophils 64.8 % (40.0-75.0); Hemoglobin 7.4 g/dL (13.5-17.5); Mean Corpuscular HGB CONC 31.5 g/dL (32.0-36.0); Mean Corpuscular Hemoglobin 26.8 pg (27.0-33.0); Mean Corpuscular Volume 85.1 fl (81.2-95.1); Mean Platelet Volume 8.7 fl (7.4-10.4); Platelet Count 464 10x3/uL (150-450); RBC Distribution Width 17.6 % (11.5-14.5); Red Blood Cell (RBC) Count 2.76 10x6/uL (4.32-5.72); White Blood Cell (WBC) Count 8.6 10x3/uL (3.5-10.5)
[2022-03-23 07:02] LABS: Anion Gap 13 mmol/L (10-20); BUN (Urea Nitrogen) 5 mg/dL (8.9-20.6); Calc. Creatinine Clearance 226 mL/min (70-130); Calcium 7.9 mg/dL (7.8-10.44); Carbon Dioxide 28 mmol/L (22-29); Chloride 103 mmol/L (98-107); Estimated GFR 137; Glucose 82 mg/dL (70-105); Potassium 3.1 mmol/L (3.5-5.1); Sodium 141 mmol/L (136-145)
[2022-03-23] MEDS: Bumetanide 1 MG/4 ML VIAL IVP SCH ×2 (07:37→14:00)
[2022-03-23] MEDS: Cholestyramine/Aspartame 4 gm Packet PO SCH ×4 (09:00→22:16)
[2022-03-23] MEDS: Nicotine 21 MG PATCH TD SCH (09:59)
[2022-03-23] MEDS: Calcium Carbonate 500 MG ChewTAB PO SCH ×2 (10:00→22:15)
[2022-03-23] MEDS: Enoxaparin Sodium 40 MG/0.4 ML SYRINGE SC SCH (10:00)
[2022-03-23] MEDS: Folic Acid 1 MG TAB PO SCH (10:01)
[2022-03-23] MEDS: Famotidine/PF 20 mg/2ml Vial SLOW IVP SCH ×2 (10:01→22:20)
[2022-03-23] MEDS: Multivitamin W/ Minerals 1 TAB PO SCH (10:01)
[2022-03-23] MEDS: Saccharomyces boulardii 250 MG CAP PO SCH ×2 (10:02→22:16)
[2022-03-24] MEDS: Vancomycin HCl 1 GM in Sodium Chloride 0.9% 250 ML 250 ML IVPB SCH ×3 (01:09→18:15)
[2022-03-24] MEDS: Meropenem 1 GM in Sodium Chloride 0.9% 100 ML IVPB SCH ×3 (03:00→19:09)
[2022-03-24 06:39] LABS: #Eosinphils 0.2 10x3/uL (0.0-0.5); #Neutrophils 5.6 10x3/uL (1.5-8.4); %Basophils 0.2 % (0.0-2.0); %Eosinophils 2.7 % (0.0-6.0); %Lymphocytes 17.8 % (18.0-47.0); %Monocytes 12.1 % (0.0-10.0); %Neutrophils 66.7 % (40.0-75.0); Hemoglobin 7.4 g/dL (13.5-17.5); Mean Corpuscular HGB CONC 31.1 g/dL (32.0-36.0); Mean Corpuscular Volume 83.5 fl (81.2-95.1); Mean Platelet Volume 9.4 fl (7.4-10.4); Platelet Count 460 10x3/uL (150-450); RBC Distribution Width 17.4 % (11.5-14.5); Red Blood Cell (RBC) Count 2.85 10x6/uL (4.32-5.72); White Blood Cell (WBC) Count 8.4 10x3/uL (3.5-10.5)
[2022-03-24 06:45] LABS: Anion Gap 12 mmol/L (10-20); BUN (Urea Nitrogen) 6 mg/dL (8.9-20.6); Calc. Creatinine Clearance 221 mL/min (70-130); Calcium 8.4 mg/dL (7.8-10.44); Carbon Dioxide 29 mmol/L (22-29); Chloride 103 mmol/L (98-107); Estimated GFR 136; Glucose 90 mg/dL (70-105); Sodium 141 mmol/L (136-145)
[2022-03-24] MEDS: Bumetanide 1 MG/4 ML VIAL IVP SCH ×2 (08:11→14:46)
[2022-03-24 09:00] LABS: Vancomycin, Trough 15.2 ug/mL
[2022-03-24] MEDS: Folic Acid 1 MG TAB PO SCH (09:05)
[2022-03-24] MEDS: Famotidine/PF 20 mg/2ml Vial SLOW IVP SCH ×2 (09:05→20:17)
[2022-03-24] MEDS: Multivitamin W/ Minerals 1 TAB PO SCH (09:05)
[2022-03-24] MEDS: Cholestyramine/Aspartame 4 gm Packet PO SCH ×4 (09:05→20:29)
[2022-03-24] MEDS: Nicotine 21 MG PATCH TD SCH (09:05)
[2022-03-24] MEDS: Enoxaparin Sodium 40 MG/0.4 ML SYRINGE SC SCH (09:05)
[2022-03-24] MEDS: Saccharomyces boulardii 250 MG CAP PO SCH ×2 (09:05→20:17)
[2022-03-24] MEDS: Calcium Carbonate 500 MG ChewTAB PO SCH ×2 (09:06→20:17)
[2022-03-24] MEDS ORDERED: Potassium Chloride 20 MEQ TAB PO SCH (10:30)
[2022-03-24 22:27] VITALS: BP 144/82; TEMP 97.2
== END 2022-03-24 21:41 | DRG 853 ==
LOC: CSHERS 02:06 → CSHICU 06:44 → CSHTELE 02-22 23:09
PROVIDERS: ADMIT Student in an Organized Health Care Education/Training Program; ATTEND Internal Medicine
PROC: 3E04329 Introduction of Other Anti-infective into Central Vein, Percutaneous Approach (ICD-10-PCS; 2022-02-20)
PROC: 30233N1 Transfusion of Nonautologous Red Blood Cells into Peripheral Vein, Percutaneous Approach (ICD-10-PCS; 2022-02-20)
PROC: 02HV33Z Insertion of Infusion Device into Superior Vena Cava, Percutaneous Approach (ICD-10-PCS; 2022-02-20)
PROC: 0QB10ZZ Excision of Sacrum, Open Approach (ICD-10-PCS; principal; 2022-02-21)
PROC: 0MBM0ZZ Excision of Left Hip Bursa and Ligament, Open Approach (ICD-10-PCS; 2022-02-21)
PROC: 0MBL0ZZ Excision of Right Hip Bursa and Ligament, Open Approach (ICD-10-PCS; 2022-02-21)
PROC: 02HV33Z Insertion of Infusion Device into Superior Vena Cava, Percutaneous Approach (ICD-10-PCS; 2022-02-22)
PROC: B548ZZA Ultrasonography of Superior Vena Cava, Guidance (ICD-10-PCS; 2022-02-22)
DX: A41.51 Sepsis due to Escherichia coli [E. coli] (principal); L89.154 Pressure ulcer of sacral region, stage 4; N17.9 Acute kidney failure, unspecified; E87.1 Hypo-osmolality and hyponatremia; E44.0 Moderate protein-calorie malnutrition; G82.20 Paraplegia, unspecified; R64 Cachexia; M86.8X8 Other osteomyelitis, other site; M86.8X5 Other osteomyelitis, thigh; R65.20 Severe sepsis without septic shock; A41.02 Sepsis due to Methicillin resistant Staphylococcus aureus; Z20.822 Contact with and (suspected) exposure to COVID-19; F17.210 Nicotine dependence, cigarettes, uncomplicated; L98.493 Non-pressure chronic ulcer of skin of other sites with necrosis of muscle; E86.0 Dehydration; E86.1 Hypovolemia; F12.10 Cannabis abuse, uncomplicated; L89.101 Pressure ulcer of unspecified part of back, stage 1; D50.0 Iron deficiency anemia secondary to blood loss (chronic); L89.891 Pressure ulcer of other site, stage 1; L89.521 Pressure ulcer of left ankle, stage 1; R19.7 Diarrhea, unspecified; E87.5 Hyperkalemia; E83.51 Hypocalcemia; L89.511 Pressure ulcer of right ankle, stage 1; Z68.20 Body mass index [BMI] 20.0-20.9, adult; Z71.6 Tobacco abuse counseling; Z99.3 Dependence on wheelchair; Z79.899 Other long term (current) drug therapy
CPT/HCPCS: 36415; 36430; 36556; 36569; 71045; 74177; 80048; 80053; 80202; 81001; 81003; 81015; 82565; 83036; 83605; 84145; 84520; 85014; 85018; 85025; 85027; 85049; 85610; 85730; 86850; 86900; 86901; 87040; 87070; 87077; 87149; 87186; 87205; 87324; 87449; 93970; 96365; 96367; 97139; 99292; C1751; J0610; J0692; J1650; J2001; J2185; J2405; J2543; J2704; J2765; J2997; J3010; J3370; J3490; J7050; J7120; P9016; Q9967; S0028; U0002; U0003; U0005

== ENCOUNTER 2022-09-18 11:05 | Inpatient (IN) | payer MEDICAID, OTHER ==
[2022-09-18 11:50] LABS: #Eosinphils 0.3 10x3/uL (0.0-0.5); #Monocytes 0.8 10x3/uL (0.0-1.1); #Neutrophils 8.5 10x3/uL (1.5-8.4); %Basophils 0.2 % (0.0-2.0); %Eosinophils 2.4 % (0.0-6.0); %Monocytes 6.9 % (0.0-10.0); %Neutrophils 71.2 % (40.0-75.0); Hemoglobin 11.5 g/dL (13.5-17.5); Mean Corpuscular Hemoglobin 27.3 pg (27.0-33.0); Mean Corpuscular Volume 85.1 fl (81.2-95.1); Mean Platelet Volume 8.9 fl (7.4-10.4); Platelet Count 372 10x3/uL (150-450); RBC Distribution Width 15.1 % (11.5-14.5); Red Blood Cell (RBC) Count 4.22 10x6/uL (4.32-5.72); White Blood Cell (WBC) Count 11.9 10x3/uL (3.5-10.5)
[2022-09-18 12:04] LABS: INR-International Normal Ratio 1.1; PTT 33.1 sec (22.0-33.0); Prothrombin Time 11.6 sec (9.5-12.1)
[2022-09-18] MEDS ORDERED: Vancomycin 1 GM VIAL ONE (12:09)
[2022-09-18] MEDS ORDERED: Cefepime 2 GM VIAL ONE (12:09)
[2022-09-18 12:11] LABS: ALT (SGPT) 91 U/L (8-55); AST (SGOT) 58 U/L (5-34); Albumin 3.6 g/dL (3.5-5.0); Alkaline Phosphatase 218 U/L (40-110); Anion Gap 17 mmol/L (10-20); BUN (Urea Nitrogen) 17 mg/dL (8.9-20.6); Bilirubin, Total 1.1 mg/dL (0.2-1.2); CK (CPK) 91 U/L (30-200); Calc. Creatinine Clearance 0 mL/min (70-130); Calcium 9.1 mg/dL (7.8-10.44); Carbon Dioxide 25 mmol/L (22-29); Chloride 102 mmol/L (98-107); Estimated GFR 94; Globulin 4.7 g/dL (2.4-3.5); Glucose 113 mg/dL (70-105); Lipase 13 U/L (8-78); Potassium 4.3 mmol/L (3.5-5.1); Protein, Total 8.3 g/dL (6.0-8.3); Sodium 140 mmol/L (136-145)
[2022-09-18 12:30] LABS: Bilirubin Neg (Negative); Blood, Urine 250 (Negative); Clarity Cloudy (Clear); Glucose, Urine (Dipstick) Normal (Negative); Ketone, Urine 5 mg/dL (Negative); Leukocyte 500 (Negative); Nitrite Negative (Negative); Protein, Urine (Dipstick) 100 mg/dl (Neg-Trace)
[2022-09-18 12:47] LABS: Bacteria/HPF 2+ HPF (None Seen); Mucous/LPF 1+ LPF (<2+); Oval Fat Bodies/HPF 1+ HPF (None Seen); RBC/HPF 21-50 HPF (0-3); Squamous Epithelial 0-3 HPF (0-3); WBC/HPF Greater Than 50 HPF (0-3)
[2022-09-18] MEDS ORDERED: Ondansetron PF 4 MG/2 ML Vial IVP PRN (13:23)
[2022-09-18] MEDS ORDERED: Acetaminophen 325 MG TAB PO PRN (13:23)
[2022-09-18] MEDS ORDERED: Senokot S 8.6-50 MG TAB PO PRN (13:23)
[2022-09-18] MEDS ORDERED: Ondansetron ODT 4 MG TAB PO PRN (13:23)
[2022-09-18] MEDS ORDERED: traMADol HCl 50 MG TAB PO PRN (13:32)
[2022-09-18 16:06] LABS: SARS-CoV-2 NAA Rapid Test Not Detected (NotDetected)
[2022-09-18] MEDS: Sodium Chloride 0.9% 1,000 ML IV SCH ×2 (21:56→22:31)
[2022-09-18] MEDS: Famotidine 20 MG TAB PO SCH (21:56)
[2022-09-18 23:29] VITALS: BMI 28.8
[2022-09-19] MEDS: Cefepime 1 GM in Sodium Chloride 0.9% 100 ML IVPB SCH ×2 (02:15→14:14)
[2022-09-19] MEDS: Vancomycin 1.5 GRAM/300 ML BAG 1.5 GM in Premix Bag 1 BAG IVPB SCH ×3 (02:15→23:16)
[2022-09-19 04:25] LABS: #Eosinphils 0.3 10x3/uL (0.0-0.5); #Monocytes 0.6 10x3/uL (0.0-1.1); %Basophils 0.3 % (0.0-2.0); %Eosinophils 3.8 % (0.0-6.0); %Lymphocytes 23.5 % (18.0-47.0); %Monocytes 7.8 % (0.0-10.0); %Neutrophils 64.2 % (40.0-75.0); Mean Corpuscular HGB CONC 32.4 g/dL (32.0-36.0); Mean Corpuscular Hemoglobin 27.5 pg (27.0-33.0); Mean Platelet Volume 8.7 fl (7.4-10.4); Platelet Count 285 10x3/uL (150-450); RBC Distribution Width 15.1 % (11.5-14.5); Red Blood Cell (RBC) Count 3.27 10x6/uL (4.32-5.72); White Blood Cell (WBC) Count 7.8 10x3/uL (3.5-10.5)
[2022-09-19 04:39] LABS: Anion Gap 11 mmol/L (10-20); BUN (Urea Nitrogen) 11 mg/dL (8.9-20.6); Calc. Creatinine Clearance 193 mL/min (70-130); Calcium 8.5 mg/dL (7.8-10.44); Carbon Dioxide 20 mmol/L (22-29); Chloride 107 mmol/L (98-107); Estimated GFR 119; Glucose 95 mg/dL (70-105); Potassium 3.4 mmol/L (3.5-5.1); Sodium 135 mmol/L (136-145)
[2022-09-19] MEDS: Sodium Chloride 0.9% 1,000 ML IV SCH (06:23)
[2022-09-19] MEDS: Famotidine 20 MG TAB PO SCH ×2 (09:38→21:18)
[2022-09-19] MEDS: Nicotine 21 MG PATCH TD SCH (09:38)
[2022-09-19] MEDS ORDERED: Vancomycin 1.5 GRAM/300 ML BAG ONE (12:13)
[2022-09-20] MEDS: Cefepime 1 GM in Sodium Chloride 0.9% 100 ML IVPB SCH ×2 (00:47→13:45)
[2022-09-20 05:08] LABS: ALT (SGPT) 45 U/L (8-55); AST (SGOT) 18 U/L (5-34); Albumin 2.9 g/dL (3.5-5.0); Alkaline Phosphatase 141 U/L (40-110); Anion Gap 11 mmol/L (10-20); BUN (Urea Nitrogen) 9 mg/dL (8.9-20.6); Bilirubin, Total 0.3 mg/dL (0.2-1.2); Calc. Creatinine Clearance 199 mL/min (70-130); Calcium 8.7 mg/dL (7.8-10.44); Carbon Dioxide 21 mmol/L (22-29); Chloride 108 mmol/L (98-107); Estimated GFR 120; Globulin 4.5 g/dL (2.4-3.5); Glucose 93 mg/dL (70-105); Potassium 3.4 mmol/L (3.5-5.1); Protein, Total 7.4 g/dL (6.0-8.3); Sodium 137 mmol/L (136-145)
[2022-09-20 05:31] LABS: #Eosinphils 0.2 10x3/uL (0.0-0.5); #Monocytes 0.4 10x3/uL (0.0-1.1); %Basophils 0.4 % (0.0-2.0); %Eosinophils 4.3 % (0.0-6.0); %Lymphocytes 31.9 % (18.0-47.0); Hemoglobin 9.2 g/dL (13.5-17.5); Mean Corpuscular HGB CONC 32.2 g/dL (32.0-36.0); Mean Corpuscular Hemoglobin 27.8 pg (27.0-33.0); Mean Corpuscular Volume 86.4 fl (81.2-95.1); Mean Platelet Volume 9.2 fl (7.4-10.4); Platelet Count 295 10x3/uL (150-450); RBC Distribution Width 15.3 % (11.5-14.5); Red Blood Cell (RBC) Count 3.31 10x6/uL (4.32-5.72); White Blood Cell (WBC) Count 5.5 10x3/uL (3.5-10.5)
[2022-09-20] MEDS: Famotidine 20 MG TAB PO SCH ×2 (09:40→21:22)
[2022-09-20] MEDS: Nicotine 21 MG PATCH TD SCH (09:41)
[2022-09-20 11:57] LABS: Vancomycin, Trough 26.5 ug/mL
[2022-09-20] MEDS ORDERED: Cefdinir 300 MG CAP PO SCH (21:00)
[2022-09-20] MEDS: Cefdinir 125 MG/5 ML Oral Suspension PO SCH (21:11)
[2022-09-20 23:15] LABS: Vancomycin, Random 13.5 ug/mL (See Comment)
[2022-09-21] MEDS ORDERED: VANCOMYCIN 1.75 GM/350 ML BAG 1.75 GM in Premix Bag 1 BAG IVPB SCH (00:01)
[2022-09-21 05:48] LABS: #Eosinphils 0.3 10x3/uL (0.0-0.5); #Monocytes 0.5 10x3/uL (0.0-1.1); #Neutrophils 3.1 10x3/uL (1.5-8.4); %Basophils 0.5 % (0.0-2.0); %Eosinophils 4.2 % (0.0-6.0); %Lymphocytes 36.1 % (18.0-47.0); %Monocytes 7.7 % (0.0-10.0); Hemoglobin 9.4 g/dL (13.5-17.5); Mean Corpuscular HGB CONC 31.6 g/dL (32.0-36.0); Mean Corpuscular Hemoglobin 27.5 pg (27.0-33.0); Mean Corpuscular Volume 86.8 fl (81.2-95.1); Platelet Count 333 10x3/uL (150-450); RBC Distribution Width 15.4 % (11.5-14.5); Red Blood Cell (RBC) Count 3.42 10x6/uL (4.32-5.72)
[2022-09-21 05:51] LABS: Anion Gap 15 mmol/L (10-20); BUN (Urea Nitrogen) 9 mg/dL (8.9-20.6); Calc. Creatinine Clearance 191 mL/min (70-130); Calcium 8.9 mg/dL (7.8-10.44); Carbon Dioxide 20 mmol/L (22-29); Chloride 110 mmol/L (98-107); Estimated GFR 118; Glucose 91 mg/dL (70-105); Potassium 3.6 mmol/L (3.5-5.1); Sodium 141 mmol/L (136-145)
[2022-09-21] MEDS: Famotidine 20 MG TAB PO SCH ×2 (10:09→22:01)
[2022-09-21] MEDS: Cefdinir 125 MG/5 ML Oral Suspension PO SCH ×2 (10:10→22:00)
[2022-09-21] MEDS: Nicotine 21 MG PATCH TD SCH (10:11)
[2022-09-22] MEDS: Famotidine 20 MG TAB PO SCH ×2 (09:29→21:41)
[2022-09-22] MEDS: Nicotine 21 MG PATCH TD SCH (09:29)
[2022-09-22] MEDS: Cefdinir 125 MG/5 ML Oral Suspension PO SCH (09:29)
[2022-09-22] MEDS: Sulfameth/Trimethoprim DS 800-160mg TAB PO SCH (21:41)
[2022-09-23] MEDS: Nicotine 21 MG PATCH TD SCH (10:59)
[2022-09-23] MEDS: Famotidine 20 MG TAB PO SCH ×2 (11:00→21:27)
[2022-09-23] MEDS: Sulfameth/Trimethoprim DS 800-160mg TAB PO SCH ×2 (11:00→21:26)
[2022-09-24] MEDS: Sulfameth/Trimethoprim DS 800-160mg TAB PO SCH ×2 (08:52→20:54)
[2022-09-24] MEDS: Nicotine 21 MG PATCH TD SCH (08:52)
[2022-09-24] MEDS: Famotidine 20 MG TAB PO SCH ×2 (08:52→20:54)
[2022-09-25] MEDS: Nicotine 21 MG PATCH TD SCH (10:03)
[2022-09-25] MEDS: Famotidine 20 MG TAB PO SCH (10:25)
[2022-09-25] MEDS: Sulfameth/Trimethoprim DS 800-160mg TAB PO SCH (10:25)
[2022-09-25] MEDS ORDERED: Nystatin 500,000 UNITS/5 ML UDCUP SSW SCH (13:00)
[2022-09-25 13:43] VITALS: BP 122/59; TEMP 98.1
== END 2022-09-25 16:23 | DRG 673 ==
LOC: CSHERS 11:05 → CSHTELE 18:53
PROVIDERS: ADMIT Internal Medicine; ATTEND Internal Medicine
PROC: 0JBR0ZZ Excision of Left Foot Subcutaneous Tissue and Fascia, Open Approach (ICD-10-PCS; principal; 2022-09-21)
DX: T83.511A Infection and inflammatory reaction due to indwelling urethral catheter, initial encounter (principal); A41.9 Sepsis, unspecified organism; L89.314 Pressure ulcer of right buttock, stage 4; R65.20 Severe sepsis without septic shock; L03.115 Cellulitis of right lower limb; L03.116 Cellulitis of left lower limb; N17.9 Acute kidney failure, unspecified; M86.651 Other chronic osteomyelitis, right thigh; M86.652 Other chronic osteomyelitis, left thigh; N39.0 Urinary tract infection, site not specified; N31.9 Neuromuscular dysfunction of bladder, unspecified; F17.210 Nicotine dependence, cigarettes, uncomplicated; S91.302A Unspecified open wound, left foot, initial encounter; F44.4 Conversion disorder with motor symptom or deficit; L89.229 Pressure ulcer of left hip, unspecified stage; L89.219 Pressure ulcer of right hip, unspecified stage; L89.899 Pressure ulcer of other site, unspecified stage; M14.679 Charcot's joint, unspecified ankle and foot; Z98.890 Other specified postprocedural states; Z99.3 Dependence on wheelchair; Z71.6 Tobacco abuse counseling; Z20.822 Contact with and (suspected) exposure to COVID-19; Z60.2 Problems related to living alone
CPT/HCPCS: 36415; 51702; 71045; 78315; 80048; 80053; 80202; 81003; 81015; 82550; 83605; 83690; 83880; 84484; 85025; 85610; 85652; 85730; 86140; 87040; 87086; 93005; 94760; 96374; 96375; 97139; A9503; J0692; J1650; J3370; J3490; J7050; U0002

== ENCOUNTER 2022-09-28 15:40 | Outpatient (CLI) | payer MEDICAID, SELFPAY | END 2022-09-28 15:41 | disposition home or self-care (01) | LOC: CSHWCC 15:40 | PROVIDERS: ATTEND Nurse Practitioner Family | DX: L89.894 Pressure ulcer of other site, stage 4 (principal) | CPT/HCPCS: 99203; G0463 ==

== ENCOUNTER 2022-10-04 10:53 | Outpatient (CLI) | payer MEDICAID | END 2022-10-04 10:54 | disposition home or self-care (01) | LOC: CSHWCC 10:53 | PROVIDERS: ATTEND Nurse Practitioner Family | DX: S31.20XD Unspecified open wound of penis, subsequent encounter (principal); L89.894 Pressure ulcer of other site, stage 4; L89.92 Pressure ulcer of unspecified site, stage 2; L89.890 Pressure ulcer of other site, unstageable | CPT/HCPCS: 11042; 97607; 99213; G0463 ==